=== PATIENT | female | born 1970 | race Caucasian/White ===

== ENCOUNTER 2024-10-05 05:32 | Emergency (ER) | payer SELFPAY ==
[2024-10-05 05:32] VITALS: BP 177/95; PULSE 86; RESP 11; TEMP 36.4; O2SAT 99; BMI 21.0
[2024-10-05 05:36] VITALS: BP 177/95; PULSE 83; RESP 13; TEMP 36.4; O2SAT 100
--- NOTE | 2024-10-05 06:00 | CT_ITS ---
PROCEDURE: ABDOMEN/PELVIS W IV CONT ONLY 10/05/2024 REASON FOR EXAM: RLQ PAIN TECHNIQUE: ABDOMEN/PELVIS W IV CONT ONLY Coronal and Sagittal reconstruction series were provided. CONTRAST: 100 cc Isovue 370 One or more dose reduction techniques were used (e.g., Automated exposure control, adjustment of the mA and/or kV according to patient size, use of iterative reconstruction technique. RADIATION DOSE SUMMARY: DLP: 450 mGycm COMPARISON: None FINDINGS: Lung bases: There is a 0.7 x 0.4 cm solid nodular density at the left lung base, image 13/115. Liver: Unremarkable Gallbladder: Unremarkable Spleen: Unremarkable Pancreas: Unremarkable Adrenals: There is a mass extending from the region of the left adrenal to the posterior margin of the liver and tail of the pancreas measuring 5.7 by 6.1 by 8.3 cm, axial image 18/115, coronal image 53/104 Hounsfield units = 73. The right adrenal is unremarkable. Kidneys: There is mild prominence of the right and left renal pelvis with no stone or renal mass. Bladder: Unremarkable Reproductive Organs: There is a fibroid uterus. Bowel: Unremarkable Appendix: Normal in appearance Lymph nodes: There is no pathologic adenopathy Vasculature: Atherosclerotic calcifications are visible Peritoneum / Retroperitoneum: There is no free air or free fluid. Bones: Unremarkable CT/Abdomen/Pelvis W IV Cont ONLY IMPRESSION: There is a 0.7 x 0.4 cm solid nodular density at the left lung base, image 13/1 15. follow-up is recommended. There is a mass extending from the region of the left adrenal to the posterior margin of the liver and tail of the pancreas measuring 5.7 by 6.1 by 8.3 cm, axial image 18/115, coronal image 53/104. Critical results were discussed with Dr. Gallegos by Dr. Corbin at the time of dictation. Reading Location: [facility]
[2024-10-05] MEDS: 0.9% Normal Saline (1000mL) 1,000 ML 999 ML IV (06:07)
[2024-10-05 06:11] LABS: Hematocrit 38.2 % (37-47); Hemoglobin 13.0 g/dL (12.0-15.0); Immature Granulocytes Count 0.050 X10^3/uL (0.0-0.0); Mean Corp Hgb Conc 34.0 g/dL (32-36); Mean Corpuscular Volume 82.2 fL (81-99); Mean Platelet Vol. 9.6 fl (6.2-12.0); NRBC Flagged by Analyzer 0 % (0-5); Platelet Count 262 K/mm3 (150-450); RBC Distribution Width CV 14.4 % (11.6-14.6); RBC Distribution Width SD 42.5 fl (35.1-43.9); Red Blood Count 4.65 M/mm3 (4.2-5.4); White Blood Count 9.2 K/mm3 (4.4-11.0)
[2024-10-05 06:36] VITALS: BP 121/87; PULSE 75; RESP 18; TEMP 36.4; O2SAT 100
[2024-10-05 07:00] VITALS: BP 128/75; PULSE 81; RESP 16; TEMP 36.4; O2SAT 100
--- NOTE | 2024-10-05 07:14 | EDS_ITS ---
HPI History of Present Illness Chief Complaint: General Illness Informant: patient and spouse/S.O. Narrative Narrative: Patient is a 53-year-old female with no reported significant past medical history. She states in the last week she has been having vague new intermittent symptoms. She states she has had bouts of headache and vision change and was seen by her family doctor as well as the business office technician because of this with no obvious reason. She states she had a recurrent event and therefore went to an outside ER where she had blood work and a head CT which also did not show any obvious cause. She states those symptoms have improved but now she is having abdominal discomfort greatest in the right lower quadrant. She states there is no associated vomiting or diarrhea or dysuria. She denies any known sick contacts but with the new onset pain and concern for infection she presents for evaluation [facility] Medical History no medical history Home Medications ?Medication ?Instructions ?Recorded ?Last Taken ?Type ondansetron 4 mg disintegrating 4 mg PO TID PRN nausea and 10/05/24 Unknown Rx tablet vomiting #21 tabs oxycodone-acetaminophen 5 mg-325 1 tab PO Q6H PRN pain 5 days #20 10/05/24 Unknown Rx mg tablet (Percocet) tabs Allergy/AdvReac Type Severity Reaction Status Date / Time No Known Allergies Allergy Verified 10/05/24 05:38 Social History Smoking Status: Never smoker [facility] ED Constitutional Constitutional ED: Denies chills or fever(s) ENT ENT ED: Denies sore throat Cardiovascular Cardiovascular: Denies chest pain Respiratory/Chest Respiratory/Chest: Denies cough or dyspnea Gastrointestinal Gastrointestinal: Reports abdominal pain and nausea; Denies diarrhea or vomiting Genitourinary Genitourinary ED: Denies dysuria or hematuria Musculoskeletal Musculoskeletal: Denies back pain or myalgias Integumentary Denies rash Neurologic Neurologic: Denies headache(s) Hematologic/Lymphatic Hematologic/Lymphatic: Denies easy bleeding or easy bruising EXAM Physical Exam Const Vital Signs: 10/05/24 05:32 10/05/24 05:36 10/05/24 05:37 Temperature 97.6 F L 97.6 F L Temperature Source Oral Oral Pulse Rate 86 83 Respiratory Rate 11 L 13 Respiratory Pattern Normal Blood Pressure 177/95 H 177/95 H Blood Pressure Mean 122 122 Pulse Ox 99 100 Oxygen Delivery Method Room Air Room Air 10/05/24 06:36 10/05/24 07:00 10/05/24 07:32 Temperature 97.6 F L 97.6 F L 98.4 F Temperature Source Oral Oral Oral Pulse Rate 75 81 77 Respiratory Rate 18 16 12 Respiratory Pattern Blood Pressure 121/87 H 128/75 H 141/84 H Blood Pressure Mean 98 92 103 Pulse Ox 100 100 99 Oxygen Delivery Method Room Air Room Air Room Air Positive well nourished and well developed General Appearance ED: well developed; Negative for pallor HEENT HEENT Narrative: Normocephalic atraumatic No tongue or lip swelling no oral lesions no airway edema or compromise; no secondary findings in the posterior pharynx to suggest infection Eyes PERRL and EOMs intact bilaterally General Eye ED: Negative for scleral icterus Neck supple Resp normal respiratory effort and clear to auscultation bilaterally Cardio regular rate and regular rhythm Rate: other Other Details: Radial and carotid pulses are equal and symmetric GI non-distended and no masses GI Narrative: Abdomen is soft and nondistended with normal active bowel sounds. There is pain with palpation with voluntary guarding in the right lower quadrant. No pulsatile mass or fluid wave. No peritoneal signs. No rigidity. Auscultation: normoactive bowel sounds Palpation: soft Back/Spine no CVA tenderness Extremity normal to inspection Neuro oriented x3, CN's II-XII intact bilaterally and no sensory deficits noted Sensorium / Orientation: alert Motor Exam: strength 5/5 throughout Psych mental status grossly normal Skin no rashes or lesions noted and no wounds General Skin Exam: Negative for jaundice or pallor MDM MDM MDM Narrative Medical decision making narrative: Patient arrived to the ER hypertensive but otherwise with stable vitals. She has already been worked up by her family doctor business office technician in outside ER regarding any potential headache and vision change and therefore I felt there is no need to repeat this especially as she denies other symptoms at this time. However with new onset pain in the right lower quadrant and voluntary guarding there is concern for acute appendicitis versus kidney stone versus ovarian cyst versus potential UTI or pyelonephritis. Therefore basic labs were obtained with a CT scan with IV contrast. Lab work revealed no clinically significant findings such as leukocytosis left shift or acute kidney injury. Lipase is normal going against pancreatitis and liver enzymes are normal going against biliary colic or acute cholecystitis. Urine sample shows no sign of infection or blood going against UTI/pyelonephritis or kidney stone. CT scan showed no sign of acute appendicitis or pelvic pathology but there was new finding of an intestinal mass along the left upper quadrant progressing towards the pancreas and liver. Based on this new mass finding and her report of abdominal pain I dominic chanel discuss the case with general surgeon on-call Dr. Rivera. He reviewed the CT scan and states that based on her scan vitals and laboratory studies that there is no need for inpatient evaluation of this as there is no obvious signs of infection or ischemia from it. The patient was informed of the mass and the need for further evaluation such as MRI and/or biopsy. She understands the importance of follow-up and states she will do so as directed. However at this time she has had improvement of her symptoms and vitals are stabilized and her workup shows a mass without secondary infection or obstruction changes she is otherwise safe for discharge History & Record Review Discussion w/independent historian: Patient and Significant other Lab Data Attestation: I reviewed the patient's lab results. Labs: Laboratory Results - last 24 hr 10/05/24 10/05/24 10/05/24 05:46 06:46 07:35 WBC 9.2 RBC 4.65 Hgb 13.0 Hct 38.2 MCV 82.2 MCH 28.0 MCHC 34.0 RDW Std Deviation 42.5 RDW Coeff of Miguel 14.4 Plt Count 262 MPV 9.6 Immature Gran % (Auto) 0.500 Neut % (Auto) 78.8 H Lymph % (Auto) 14.0 L Karnes % (Auto) 3.6 Eos % (Auto) 2.8 Baso % (Auto) 0.3 Absolute Neuts (auto) 7.3 Absolute Lymphs (auto) 1.29 Nucleated RBC % 0 Sodium Cancelled 133 Potassium Cancelled 4.1 Chloride Cancelled 100 Carbon Dioxide Cancelled 22.9 Anion Gap Cancelled 10 BUN Cancelled 6 Creatinine Cancelled 0.47 L Estim Creat Clear Calc Cancelled 133.08 Est GFR (MDRD) Non-Af Cancelled 114 BUN/Creatinine Ratio Cancelled 12.7 Glucose Cancelled 109 H Calcium Cancelled 8.2 Total Bilirubin Cancelled 0.23 Direct Bilirubin Cancelled < 0.08 AST Cancelled 31 ALT Cancelled 33 Alkaline Phosphatase Cancelled 83 Total Protein Cancelled 6.2 Albumin Cancelled 3.3 L Globulin Cancelled 3.0 Lipase Cancelled 44 Urine Color Yellow Urine Clarity Clear Urine pH 7.0 Ur Specific [place] 1.005 Urine Protein 15 H Urine Glucose (UA) Normal Urine Ketones Negative Urine Occult Blood Negative Urine Nitrite Negative Urine Bilirubin Negative Urine Urobilinogen Normal Ur Leukocyte Esterase Negative Urine RBC 0 SEEN Urine WBC 0 SEEN Ur Squamous Epith Cells 0 SEEN Urine Bacteria 0 SEEN Urine Mucus 0 SEEN Radiography Diagnostic Testing: Clinical Impression(s) from Imaging Studies Abdomen/Pelvis CT 10/05/24 06:00 IMPRESSION: There is a 0.7 x 0.4 cm solid nodular density at the left lung base, image 13/115. follow-up is recommended. There is a mass extending from the region of the left adrenal to the posterior margin of the liver and tail of the pancreas measuring 5.7 by 6.1 by 8.3 cm, axial image 18/115, coronal image 53/104. Critical results were discussed with Dr. Gallegos by Dr. Corbin at the time of dictation. Reading Location: [facility] Discharge Plan Triage Chief Complaint: General Illness ED Provider: Zion Gallegos Dx/Rx/DC Orders Clinical Impression: Abdominal mass, Nonspecific abdominal pain Instructions: Abdominal Pain Prescriptions: New oxycodone-acetaminophen [Percocet] 5-325 mg tablet 1 tab PO Q6H PRN (Reason: pain) 5 Days Qty: 20 0RF ondansetron 4 mg tablet,disintegrating 4 mg PO TID PRN (Reason: nausea and vomiting) Qty: 21 0RF Primary Care Provider: Yesi Garza Referrals: Sid Almendarez MD [Med Staff - Active Staff] - (Abdominal mass) Yesi Garza MD [Primary Care Provider] - Activity Restrictions/Additional Instructions: Please follow-up with medical oncology to discuss further testing to delineate what exactly this abdominal mass is. Return to the ER for repeat evaluation if you have any further concerns or worsening of symptoms Print Language: Yoruba Disposition Disposition: Home, Self Care Discharge Date/Time: 10/05/24 08:43
[2024-10-05 07:15] LABS: AST(SGOT) 31 U/L (<=31); Alanine Aminotransfer ALT/SGPT 33 U/L (<=34); Albumin, Serum 3.3 g/dL (3.5-5.0); Alkaline Phosphatase 83 U/L (35-104); Anion Gap 10 (5-15); BUN 6 mg/dL (4-19); BUN/Creat Ratio 12.7 RATIO (10-20); Bilirubin, Direct < 0.08 mg/dL (0.00-0.30); Calcium,Total 8.2 mg/dL (7.6-11.0); Carbon Dioxide 22.9 mmol/L (21.0-32.0); Chloride 100 mmol/L (98-108); Estimated Creatinine Clearance 133.08 ml/min (50-250); Globulin 3.0 g/dL (2.2-4.2); Glucose 109 mg/dL (70-99); Lipase 44 U/L (13-75); Potassium 4.1 mmol/L (3.3-5.1)
[2024-10-05 07:32] VITALS: BP 141/84; PULSE 77; RESP 12; TEMP 36.9; O2SAT 99
[2024-10-05 07:40] LABS: Mucous, Urine 0 SEEN /hpf (<or=2+); Red Blood Cells-Urine 0 SEEN /hpf (0-5); Squamous Epithelial Cells - UA 0 SEEN /hpf (5-10)
[2024-10-05 07:42] LABS: Color, Urine Yellow (Yellow); Glucose, Dipstick Normal (Normal); Ketone-Dipstick Negative (Negative); Leukocyte Esterase-Dipstick Negative /ul (Negative); Nitrite-Dipstick Negative (Negative); Occult Blood-Urine Negative /ul (Negative); Protein-Dipstick 15 mg/dl (Negative); Specific Gravity, Urine 1.005 (1.002-1.030); Urine Bilirubin Dipstick Negative (Negative)
[2024-10-05 08:35] VITALS: BP 136/83; PULSE 88; RESP 13; TEMP 36.9; O2SAT 98
== END 2024-10-05 08:43 | disposition home or self-care (01) ==
PROVIDERS: Emergency Provider Emergency Medicine; PCP Student in an Organized Health Care Education/Training Program; Visit Provider Emergency Medicine
DX: R10.31 Right lower quadrant pain (principal); R19.02 Left upper quadrant abdominal swelling, mass and lump
CPT/HCPCS: 74177; 80048; 80076; 81001; 83690; 85025; 96361; 96374; 96375; 99282; Q9967; A4216; J2405